=== PATIENT | male | born 2005 | race Caucasian/White ===

== ENCOUNTER 2023-06-19 11:28 | Emergency (ER) | payer BC, OTHER, SELFPAY ==
[2023-06-19 11:31] VITALS: BP 146/95
--- NOTE | 2023-06-19 12:23 | ED.GENMED ---
History of Present Illness
General
Chief Complaint: Nose Bleed
Source: patient
Time Seen by Provider: 06/19/23 12:09
Travel History
Have you had any contact with someone who has COVID-19?: No
Do you have any symptoms of coronavirus? Fever > 100 degrees, chills, cough, shortness of breath, sore throat, loss of taste or smell, muscle aches, or headache?: No
History of Present Illness
History of Present Illness:
18-year-old male presenting to the emergency department for evaluation after he blew his nose earlier this morning and had epistaxis from the left nare lasting for around 1 hour, on arrival to the emergency department bleeding has stopped and
remains without any further. Patient states that he has a nosebleed around every other day but that this is usual for him. Today the bleeding lasted a little bit longer which is why he presented to the emergency department. Denies any other
bleeding, abnormal bruising, headaches or any other concerns including fevers or infectious symptoms. Patient notes he has never seen ENT for this complication and has not been using any saline sprays or any other treatments for nosebleeds.
Past History
Past History
ED Past Medical History: Psychiatric
ED Past Surgical History: Appendectomy and Cholecystectomy
Social History
Tobacco: Non-smoker
Alcohol: None
Drug: None
Personal: Single
Living: with family
Review of Systems
Review of Systems
All Other Systems: ROS reviewed and negative except as documented in HPI and ROS
Phy Exam
Physical Exam
Physical Exam:
GENERAL: Alert , in no apparent distress
EYE: conjunctiva clear
Head: Normocephalic atraumatic
NECK: Supple,
ENT: mmm. No epistaxis noted. No septal hematoma. Nasal passages patent and without edema
LUNGS: no acute respiratory distress
NEUROLOGICAL: Alert and oriented
SKIN: Warm and dry, skin intact.
MUSCULOSKELETAL: well perfused.
PSYCH: Normal and appropriate interaction.
Scores
Heart Failure Risk
Heart Failure Risk Score: Not Applicable
Heart Score for Chest Pain Patients
STEMI patient?: Not applicable
Withdrawal Assessment of Alcohol
Withdrawal Assessment Completed?: Not applicable
Course
Vital Signs
Initial and Last Documented VS:
Initial Vital Signs
Temp Pulse Resp BP Pulse Ox
98.1 F 94 18 146/95 98
06/19/23 11:31 06/19/23 11:31 06/19/23 11:31 06/19/23 11:31 06/19/23 11:31
Last Documented Vital Signs
Temp Pulse Resp BP Pulse Ox
98.1 F 94 18 146/95 98
06/19/23 11:31 06/19/23 11:31 06/19/23 11:31 06/19/23 11:31 06/19/23 11:31
MDM/Problems Addressed
MDM/Problems Addressed:
18-year-old male presenting emergency department for epistaxis from the left nare. Bleeding has fully resolved. No further bleeding since arrival to the emergency department. Hemodynamically stable. I do not suspect any bleeding or clotting
disorders. Provided patient with information for ENT to follow-up. Aware of return precautions but otherwise stable for discharge home.
*Pulse Oximetry
Patient hypoxic: no
*Critical Care Note
Total Time (30-74mins, 75-104mins- exclusive of procedures): Not Applicable
ED Attending Note
-
Portions of this chart may have been created with voice recognition software.� Occasional wrong word or��sound alike� substitutions may have occurred due to the inherent limitations of voice recognition software.
Discharge Plan
Departure
Patient Disposition: Home (Routine Discharge)
Date of Disposition: 06/19/23
Time of Disposition: 12:24
Patient with high blood pressure during this ER visit?: Yes
Discharge Problem:
Epistaxis
Instructions: Nosebleeds (DC)
Prescriptions:
No Action
topiramate 25 MG tablet
25 mg PO HS
topiramate 25 MG tablet
50 mg PO DAILY
testosterone cypionate 200 MG/1 ML oil
0.2 ml IM SA
Patient Comments:
PATIENT [employer] ON 10/28/20 #4 VIALS
fluoxetine 20 MG capsule
20 mg PO DAILY
methylphenidate HCl [Concerta] 36 MG tablet extended release 24hr
72 mg PO DAILY
Patient Comments:
PATIENT [employer] ON 11/13/20 #60
bupropion HCl 150 MG tablet extended release 24 hr
150 mg PO DAILY
dicyclomine 10 MG capsule
10 mg PO QIDPRN PRN (Reason: abdominal pain/spasms) Qty: 20 0RF
famotidine 20 MG tablet
20 mg PO DAILY
sod sulf-pot chloride-mag sulf [Sutab] 1.479 GM tablet
cranberry [id number] coag [Azo Cranberry Plus Probiotic] 1 EACH tablet
1 tab PO TID
Referrals:
García Payne MD [Active] -
Micky Salas DO [Family Provider] -
Interventions
Interventions:
*Risk Screen - Suicide Last Done: 06/19/23 11:31
*General Assessment Last Done: 06/19/23 11:31
*Neglect/Abuse Screening Last Done: 06/19/23 11:31
*ED COVID-19 Vaccine History Last Done: 06/19/23 11:31
ED-EENT Assessment Last Done: 06/19/23 12:00
Discharge Date and Time
Print Language: MONEGASQUE
== END 2023-06-19 12:39 | disposition home or self-care (01) ==
LOC: EMR 11:28
PROVIDERS: EMERGENCY PHYSICIAN Emergency Medicine; FAMILY PHYSICIAN Family Medicine
DX: R04.0 Epistaxis (principal); Z90.49 Acquired absence of other specified parts of digestive tract
CPT/HCPCS: 99282

== ENCOUNTER 2024-05-03 11:27 | Emergency (ER) | payer BC, OTHER, SELFPAY ==
[2024-05-03 11:31] VITALS: BP 131/89
--- NOTE | 2024-05-03 11:54 | ED.GENMED ---
History of Present Illness
General
Chief Complaint: Head Injury
Source: patient
Exam Limitations: none
Time Seen by Provider: 05/03/24 11:37
Nursing documentation reviewed up to this point in time: agreed with
History of Present Illness
History of Present Illness:
19 y/o M
h/o depression, anxiety
here with headache, nausea after hitting himself int he head accidentally last night 5 pm
pt was at home vacuuming the stairs and using the hose and the actual vacuum hit him it he back of the head
he was dazed briefly but no LOC
no AC
says he had mild headache last night
took motrin last night
today woke up and feels a little off, mild patterson and mild nausea
no vomting, confusion, enck pain, weakness, paresthseias,
got sent home from work
Past History
Past History
ED Past Medical History: Psychiatric
ED Past Surgical History: Appendectomy and Cholecystectomy
Social History
Tobacco: Non-smoker
Alcohol: None
Drug: None
Personal: Single
Living: with family
Review of Systems
Review of Systems
Allergies reviewed?: Yes
All Other Systems: Not applicable
Phy Exam
Physical Exam
Physical Exam:
GENERAL: Alert , in no apparent distress
HEAD: NCAT nontender, no lumps
EYE: pupils equal and reactive, no nystagmus, no photophobia
NECK: Supple,full rom, nontender
ENT: o/p clr, mmm. No hemotympanums
CARDIAC: Regular rate and rhythm . no edema
LUNGS: Clear breath sounds bilaterally, no acute respiratory distress, no wheezes/rales/rhonchi
ABDOMEN: Soft, without focal tenderness, no r/g, no cvat
NEUROLOGICAL: Alert and orientedx 4, cn intact, no facial asymmetry, 5/5 strength in UE/LE, sensation intact, romberg neg, ambulates without assistance, neg pronator drift
SKIN: Warm and dry, skin intact.
MUSCULOSKELETAL: No edema, well perfused.
PSYCH: Normal and appropriate interaction.
Course
Orders/Labs/Results
Orders:
Orders
05/03/24 11:53
Acetaminophen [Tylenol] 1,000 mg PO NOW STA
Vital Signs
Initial and Last Documented VS:
Initial Vital Signs
Temp Pulse Resp BP Pulse Ox
37.2 C 72 18 131/89 98
05/03/24 11:31 05/03/24 11:31 05/03/24 11:31 05/03/24 11:31 05/03/24 11:31
Last Documented Vital Signs
Temp Pulse Resp BP Pulse Ox
37.2 C 72 18 131/89 98
05/03/24 11:31 05/03/24 11:31 05/03/24 11:31 05/03/24 11:31 05/03/24 11:31
MDM/Problems Addressed
Differential Diagnosis Includes:
minor head injury, mild concussion
MDM/Problems Addressed:
19-year-old male with history of anxiety and depression presents for headache and mild nausea after getting struck in the head by a vacuum that was on the top step as he was vacuuming last evening. Patient says he was using a hose accidentally
pulled the vacuum down onto the back of his head. He felt a little dazed but had no loss of consciousness. He is not on any anticoagulation. Took ibuprofen last night. Woke up and felt a little headache and mild nausea was sent home from work.
Patient looks well, is awake and alert, neurologically intact, no signs of trauma. I suspect he probably has a mild head injury versus a minor concussion. We discussed imaging however given that it has been greater than 12 hours since the injury
without any decline in mental status reacted to not image. And treat empirically for mild concussion.
Brain rest 48 hours, Tylenol, follow-up encouraged for persistent symptoms
*Critical Care Note
Total Time (30-74mins, 75-104mins- exclusive of procedures): Not Applicable
ED Attending Note
-
Portions of this chart may have been created with voice recognition software.� Occasional wrong word or��sound alike� substitutions may have occurred due to the inherent limitations of voice recognition software.
Discharge Plan
Departure
Patient Disposition: Home (Routine Discharge)
Date of Disposition: 05/03/24
Time of Disposition: 12:00
Patient with high blood pressure during this ER visit?: No
Condition: Fair
Covid-19: Not Applicable
Discharge Problem:
Mild concussion
Instructions: Concussion, Adult (DC), Minor Head Injury (DC)
Prescriptions:
No Action
topiramate 25 MG tablet
25 mg PO HS
topiramate 25 MG tablet
50 mg PO DAILY
testosterone cypionate 200 MG/1 ML oil
0.2 ml IM SA
Patient Comments:
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
fluoxetine 20 MG capsule
20 mg PO DAILY
methylphenidate HCl [Concerta] 36 MG tablet extended release 24hr
72 mg PO DAILY
Patient Comments:
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
bupropion HCl 150 MG tablet extended release 24 hr
150 mg PO DAILY
dicyclomine 10 MG capsule
10 mg PO QIDPRN PRN (Reason: abdominal pain/spasms) Qty: 20 0RF
famotidine 20 MG tablet
20 mg PO DAILY
sod sulf-pot chloride-mag sulf [Sutab] 1.479 GM tablet
cranberry [id number]-[id number] coag [Azo Cranberry Plus Probiotic] 1 EACH tablet
1 tab PO TID
Referrals:
Micky Salas DO [Family Provider] - Follow up in 2-3 days
Stand Alone Forms: Return to Work
Activity Restrictions/Additional Instructions:
He may have a minor concussion. Practice brain rest for the next 48 hours limiting your TV, phone, reading, computer use etc. Take Tylenol or ibuprofen for headaches as needed. After 48 hours he should be able to do normal activities. If you get
a headache stop doing this activities and take a break. If you are still having symptoms after a week you should be seen by your family doctor. Return for any severe worst headache of your life, confusion, vomiting etc.
Interventions
Interventions:
*Risk Screen - Suicide Last Done: 05/03/24 11:33
Discharge Date and Time
Print Language: ISRAELI
[2024-05-03] MEDS: TYLENOL 1000 MG PO (12:05)
== END 2024-05-03 12:14 | disposition home or self-care (01) ==
LOC: EMR 11:27
PROVIDERS: EMERGENCY PHYSICIAN Emergency Medicine; FAMILY PHYSICIAN Family Medicine
DX: S06.0X0A Concussion without loss of consciousness, initial encounter (principal); W22.8XXA Striking against or struck by other objects, initial encounter; Z90.49 Acquired absence of other specified parts of digestive tract
CPT/HCPCS: 99282

== ENCOUNTER 2025-01-08 06:02 | Day surgery (SDC) | payer BC, SELFPAY ==
[2025-01-08] VITALS (7 sets, daily range): BP systolic 121–159; BP diastolic 63–93; BMI 36.6
[2025-01-08] MEDS: NORMOSOL-R/PLASMALYTE-A 1000 IV (06:59)
[2025-01-08] MEDS: TRANSDERM-SCOP 1 PATCH TRANSDERM (07:13)
== END 2025-01-08 10:15 | disposition home or self-care (01) ==
LOC: SDS 06:02
PROVIDERS: ATTENDING PHYSICIAN Otolaryngology
DX: J34.2 Deviated nasal septum (principal); R04.0 Epistaxis
CPT/HCPCS: 30520